=== PATIENT | male | born 1995 | race Caucasian/White ===

== ENCOUNTER 2017-02-26 19:14 | Emergency (ER) | payer BC ==
--- NOTE | 2017-02-26 19:46 | EDPHY ---
H & P Stated Complaint: abdominal pain and bloody emesis Time Seen by Provider: 02/26/17 19:46 Source: Patient - Personal History Current Tetanus/Diphtheria Vaccine: Yes Current Tetanus Diphtheria and Acellular Pertussis (TDAP): Yes - Medical/Surgical History Hx Asthma: No Hx Chronic Respiratory Disease: No Hx Diabetes: No Hx Cardiac Disease: No Hx Renal Disease: No Hx Cirrhosis: No Hx Alcoholism: No Hx HIV/AIDS: No Hx Splenectomy or Spleen Trauma: No Other PMH: PMH- ADHD - Social History Smoking Status: Current some day smoker Constitutional: Initial Vital Signs Temperature (C) 37.1 C 02/26/17 19:21 Heart Rate 84 02/26/17 19:21 Respiratory Rate 18 02/26/17 19:21 Blood Pressure 152/72 H 02/26/17 19:21 O2 Sat (%) 98 02/26/17 19:21 O2 Delivery Mode Room Air Allergies/Adverse Reactions: No Known Allergies Allergy (Unverified 03/12/16 12:53) Home Medications: Medication Instructions Recorded Adderall 10 MG (*) 03/12/16 Pantoprazole Sodium [Protonix] 40 mg PO DAILY #30 tablet. 02/26/17 Medical Decision Making - Diagnostics Imaging Results: Study: CT of the abdomen Indication: hematemesis Results: CT scan of the body parts was obtained. The results of the study are normal. The study was read by the radiologist, Dr. Norman. I viewed the images myself on the PACS system. Imaging: Discussed imaging studies w/ jig box operator Radiologist, I viewed and interpreted images myself ED Course/Re-evaluation: CHIEF COMPLAINT: Vomiting blood HISTORY OF PRESENT ILLNESS: The patient is a 22 y/o male complaining of vomiting dark blood on Sunday night and last night after drinking excessively Sunday. Three weeks ago he drank excessively and then vomited bright red blood. This happened again two weeks ago. This Sunday he drank excessively and than night he vomited dark red blood. He vomited dark red blood again Sunday night. He only drinks on the weekend and reports drinking more than normal the past few weekends. He has had three bowel movements today that were darker than normal but not black. He has associated intermittent abdominal pain and nausea. He denies any black or tarry stool, blood in stool, or other associated symptoms. He denies taking any NSAIDs , aspirin, or other blood thinners. He vomited blood over a year ago after heavy drinking. REVIEW OF SYSTEMS: A 10 point review of systems was performed and is negative with the exception of the elements mentioned in the history of present illness. PHYSICAL EXAM: HR, BP, O2 Sat, RR. Temp noted General Appearance: Alert, well hydrated, appropriate, and non-toxic appearing. Head: Atraumatic without scalp tenderness or obvious injury Eyes: Pupils equal, round, reactive to light and accommodation, EOMI, no trauma , no injection. Ears: Clear bilaterally, no perforation, normal landmarks Nose: Atraumatic, no rhinorrhea, clear. Throat: There is no erythema or exudates, no lesions, normal tonsils, mucus membranes moist. Neck: Supple, nontender, no lymphadenopathy. Respiratory: No retractions, no distress, no wheezes, and no accessory muscle use. Lungs are clear to auscultation bilaterally. Cardiovascular: Regular rate and rhythm, no murmurs, rubs, or gallops. Good capillary refill all extremities. Gastrointestinal: Pain that moves, abdomen is soft, non-distended, no masses, no rebound, no guarding, no peritoneal signs. Musculoskeletal: Normal active ROM of all extremities, atraumatic. Neurological: Alert, appropriate, and interactive. The patient has normal DTRs and non-focal cranial nerves, motor, sensory, and cerebellar exam. Skin: No rashes, good turgor, no nodules on palpation. Past medical history: Denies Past surgical history: Denies Family history: Non-contributory Social history: Student at , lives in [place], from originally, studies economics DIAGNOSTICS/PROCEDURES/CRITICAL CARE TIME: DIFFERENTIAL DIAGNOSIS: The differential diagnosis for this patient's symptoms include but is not limited to an ulcer, gastritis, and Samara-Cabello tear. MEDICAL DECISION MAKING: The patient is a 22 y/o male complaining of vomiting with blood in it after drinking heavily. For the past three weeks after he drinks heavily on the weekends he has vomited either bright or dark blood. He has associated nausea and abdominal pain. He denies any bloody, black, or tarry stools. On exam his abdominal pain moved from epigastric, periumbilical, and right upper quadrant pain under the ribs to lower left quadrant pain. I feel he likely has gastritis causes by heavy drinking but I want to investigate other possibilities. 2200: I reassessed the patient and discussed the results of his workup, which was largely negative. I feel he is safe to return home. Return precaution and follow up instructions given. The patient agrees with this course of action. - Data Points Laboratory Results: Laboratory Results 02/26/17 21:13 02/26/17 21:13 02/26/17 02/26/17 02/26/17 21:13 21:13 21:08 WBC 8.51 10^3/uL 10^3/uL (3.80-9.50) RBC 5.37 10^6/uL 10^6/uL (4.40-6.38) Hgb 17.1 g/dL g/dL (13.7-17.5) POC Hgb 17.7 gm/dL H gm/dL (13.7-17.5) Hct 48.2 % % (40.0-51.0) POC Hct 52 % H % (40-51) MCV 89.8 fL fL (81.5-99.8) MCH 31.8 pg pg (27.9-34.1) MCHC 35.5 g/dL g/dL (32.4-36.7) RDW 12.2 % % (11.5-15.2) Plt Count 324 10^3/uL 10^3/uL (150-400) MPV 8.5 fL L fL (8.7-11.7) Neut % (Auto) 72.8 % % (39.3-74.2) Lymph % (Auto) 17.0 % % (15.0-45.0) [place] % (Auto) 9.6 % % (4.5-13.0) Eos % (Auto) 0.2 % L % (0.6-7.6) Baso % (Auto) 0.2 % L % (0.3-1.7) Nucleat RBC Rel Count 0.0 % % (0.0-0.2) Absolute Neuts (auto) 6.18 10^3/uL 10^3/uL (1.70-6.50) Absolute Lymphs (auto) 1.45 10^3/uL 10^3/uL (1.00-3.00) Absolute Monos (auto) 0.82 10^3/uL H 10^3/uL (0.30-0.80) Absolute Eos (auto) 0.02 10^3/uL L 10^3/uL (0.03-0.40) Absolute Basos (auto) 0.02 10^3/uL 10^3/uL (0.02-0.10) Absolute Nucleated RBC 0.00 10^3/uL 10^3/uL (0-0.01) Immature Gran % 0.2 % % (0.0-1.1) Immature Gran # 0.02 10^3/uL 10^3/uL (0.00-0.10) POC Sodium 141 mEq/L mEq/L (134-144) Sodium 137 mEq/L mEq/L (134-144) POC Potassium 3.6 mEq/L mEq/L (3.3-5.0) Potassium 4.0 mEq/L mEq/L (3.5-5.2) POC Chloride 104 mEq/L mEq/L (97-110) Chloride 100 mEq/L mEq/L (97-110) Carbon Dioxide 20 mEq/l L mEq/l (22-31) Anion Gap 17 mEq/L H mEq/L (8-16) POC BUN 9 mg/dL mg/dL (7-23) BUN 10 mg/dL mg/dL (7-23) Creatinine 0.8 mg/dL mg/dL (0.7-1.3) POC Creatinine 0.7 mg/dL mg/dL (0.7-1.3) Estimated GFR > 60 Glucose 85 mg/dL mg/dL (70-100) POC Glucose 88 mg/dL mg/dL (70-100) Calcium 11.0 mg/dL H mg/dL (8.5-10.4) Phosphorus 3.0 mg/dL mg/dL (2.5-4.5) Total Bilirubin 1.5 mg/dL H mg/dL (0.1-1.4) Conjugated Bilirubin 0.4 mg/dL mg/dL (0.0-0.5) Unconjugated Bilirubin 1.1 mg/dL mg/dL (0.0-1.1) AST 52 IU/L IU/L (17-59) ALT 48 IU/L IU/L (21-72) Alkaline Phosphatase 75 IU/L IU/L (38-126) Total Protein 9.0 g/dL H g/dL (6.3-8.2) Albumin 5.3 g/dL H g/dL (3.5-5.0) Lipase 127 IU/L IU/L (23-300) Medications Given: Discontinued Medications Famotidine/Sodium Chloride (Pepcid 20 Mg (Premix)) 50 mls @ 200 mls/hr IV EDNOW ONE Stop: 02/26/17 21:14 Last Admin: 02/26/17 21:18 Dose: 50 mls Ondansetron HCl (Zofran) 4 mg IVP EDNOW ONE Stop: 02/26/17 21:01 Last Admin: 02/26/17 21:19 Dose: 4 mg Point of Care Test Results: 02/26/17 21:08 POC Sodium 141 POC Potassium 3.6 POC Chloride 104 POC BUN 9 POC Creatinine 0.7 POC Glucose 88 Departure - Departure Disposition: Home, Routine, Self-Care Clinical Impression: Gastritis with bleeding due to alcohol Qualifiers: Chronicity: acute Qualified Code(s): K29.21 - Alcoholic gastritis with bleeding Condition: Good Instructions: Gastritis (ED), Diet for Stomach Ulcers and Gastritis (ED) Additional Instructions: 1. Limit alcohol intake. 2. Take medication prescribed for 30 days. 3. Follow-up with Dr. Olea, gastroenterology, at [facility] for unimproved symptoms. 4. Return to the ED if you vomit blood or experience other worsening of condition. Referrals: HEATHER,UNKNOWN [Other] - As per Instructions Hugo Olea MD [Medical Doctor] - As per Instructions Prescriptions: Pantoprazole Sodium [Protonix] 40 mg PO DAILY #30 tablet. Report Scribed for: Shantanu Cates Report Scribed by: Janice Phan Date of Report: 02/26/17 Time of Report: 21:30
[2017-02-26] MEDS ORDERED: FAMOTIDINE 20 MG/NACL 50 ML IV ONE (21:00)
[2017-02-26] MEDS ORDERED: ONDANSETRON 4 MG/2 ML VIAL IVP ONE (21:00)
[2017-02-26 21:21] LABS: % IMMATURE GRANULYOCYTES 0.2 % (0.0-1.1); ABSOLUTE IMMATURE GRANULOCYTES 0.02 10^3/uL (0.00-0.10); ADD DIFF? NO; ADD MORPH? NO; ADD SCAN? NO; ATYPICAL LYMPHOCYTE FLAG 0 (0-99); FRAGMENT RBC FLAG 0 (0-99); HEMATOCRIT 48.2 % (40.0-51.0); HEMOGLOBIN 17.1 g/dL (13.7-17.5); LEFT SHIFT FLG 0 (0-99); LIPEMIA HEMOLYSIS FLAG 90 (0-99); MEAN CELL HEMOGLOBIN 31.8 pg (27.9-34.1); MEAN CELL HEMOGLOBIN CONCENTR. 35.5 g/dL (32.4-36.7); MEAN CELL VOLUME 89.8 fL (81.5-99.8); MEAN PLATELET VOLUME 8.5 fL (8.7-11.7); PLATELET CLUMPS FLAG 10 (0-99); PLATELET COUNT 324 10^3/uL (150-400); RED BLOOD CELL COUNT 5.37 10^6/uL (4.40-6.38); RED CELL DISTRIBUTION WIDTH 12.2 % (11.5-15.2)
[2017-02-26 21:34] LABS: ALANINE AMINOTRANSFERASE 48 IU/L (21-72); ALBUMIN 5.3 g/dL (3.5-5.0); ALKALINE PHOSPHATASE 75 IU/L (38-126); ANION GAP 17 mEq/L (8-16); ASPARTATE AMINOTRANSFERASE 52 IU/L (17-59); BILIRUBIN,TOTAL 1.5 mg/dL (0.1-1.4); BILIRUBIN-CONJUGATED 0.4 mg/dL (0.0-0.5); BILIRUBIN-UNCONJUGATED 1.1 mg/dL (0.0-1.1); CARBON DIOXIDE 20 mEq/l (22-31); CHLORIDE 100 mEq/L (97-110); CREATININE 0.8 mg/dL (0.7-1.3); GLOMERULAR FILTRATION RATE > 60; GLUCOSE 85 mg/dL (70-100); SODIUM 137 mEq/L (134-144)
[2017-02-26] MEDS ORDERED: IOPAMIDOL (ISOVUE-300) 100 ML BTL ONE (21:37)
[2017-02-26 22:25] VITALS: BP 142/66; PULSE 72; RESP 16; TEMP 98.2; O2SAT 97
== END 2017-02-26 22:25 | disposition home or self-care (01) ==
DX: K29.21 Alcoholic gastritis with bleeding (principal); F17.200 Nicotine dependence, unspecified, uncomplicated
CPT/HCPCS: 82947-QW; 96365; J2405; Q9967

== ENCOUNTER 2018-03-24 10:25 | Emergency (ER) | payer BC ==
[2018-03-24] MEDS ORDERED: ONDANSETRON 4 MG/2 ML VIAL IVP ONE (11:08)
[2018-03-24] MEDS ORDERED: NS 1,000 ML IV ONE (11:08)
--- NOTE | 2018-03-24 11:08 | EDPHY ---
General Time Seen by Provider: 03/24/18 10:56 Narrative: CHIEF COMPLAINT: Nausea, insomnia, dizzy, head injury, "slap injuries" HISTORY OF PRESENT ILLNESS: Patient presents by private vehicle with complaints of feeling nauseated, difficulty sleeping, lightheaded with a closed head injury and playing "a slapping game" on night. He reports that he was drinking heavily on and plain "a stupid game where we slap each other in the abdomen." He states that he at some point slipped and fell, striking his head on an unknown object. He does not think he lost consciousness. He had a right-sided headache that has significantly improved. He has persistent nausea, insomnia, dizziness and lightheadedness. He has mild abdominal pain. He has no urinary complaints or hematuria. He has no fever. No neck pain or stiffness. He does have some difficulty with his thought process. He had 1st attributed this to alcohol use but states that it has not improved enough for him. He presented to Urgent Care, but they sent him to emergency depart for higher level care. No modifying factors for these. He has no other associated complaints or modifying factors. REVIEW OF SYSTEMS: 10 systems were reviewed and negative with the exception of the elements mentioned in the history of present illness. PCP: None locally. SPECIALISTS: None PAST MEDICAL HISTORY: Attention deficit hyperactivity disorder PAST SURGICAL HISTORY: no surgical history SOCIAL HISTORY: Nonsmoker. Occasional alcohol and marijuana use. [employer] student. Originally from [place] FAMILY HISTORY: Noncontributory EXAMINATION: Vitals: Triage VS reviewed General Appearance: Alert, no distress. Well appearing. Normal conversation. Head: normocephalic. Superficial frontal hematoma. No occipital hematoma. Superficial 2 cm laceration to the right frontal scalp in the hairline. No distraction of the wound borders. No exposure of the galea. No foreign body or bleeding. Eyes: Pupils equal and round, no conjunctival pallor or injection ENT, Mouth: Mucous membranes moist Neck: Normal inspection, supple, non-tender. No crepitus or deformity. Painless range of motion. Respiratory: Lungs are clear to auscultation Cardiovascular: Regular rate and rhythm Gastrointestinal: Abdomen is soft and nondistended. Minimal tenderness over areas of superficial ecchymosis to the quadrants. No CVA tenderness. No guarding. Bowel sounds are present all 4 quadrants. No rigidity. No peritonitis Back: non-tender, no bony abnormalities Neurological: GCS 15. A&O, nonfocal, normal gait. Strength is symmetric in all 4 limbs. Light Sensory is symmetric upper lower extremities. Normal finger -to-nose. No pronator drift. Skin: Warm and dry, no rash. Superficial abrasion as above. Extremities: Nontender, no pedal edema Psychiatric: Mood and affect normal DIFFERENTIAL DIAGNOSES: Including but not limited to intracranial hemorrhage, closed head injury, concussion, cerebral edema, splenic injury, renal injury, hepatic injury, hollow organ injury, rectus sheath hematoma MDM: 11:00 a.m. Reported repeat blunt trauma by slapping to the abdomen on night with some bruising but a benign abdominal examination. He does have symptoms consistent with a post concussive state. He has a normal neuro examination with no focal findings. He has no evidence of basilar skull fracture. I do not feel he meets hard criteria by [place] CT head rules or NOC for CT scan at this time. I do feel it is reasonable to obtain laboratory studies and provide IV fluid resuscitation for dehydration. He is in no acute distress. Vital signs are within normal limits. 12:30 p.m. Patient re-evaluated. Laboratory studies unremarkable. I have re-evaluated the patient. He continues complaint nausea and dizziness. He would like discussed with parents. 1:30 p.m. Patient has discussed further was mother. They are both requesting CT scan of the head their concern for symptoms. I have ordered this at the request. 2:00 p.m. Notified by radiologist Dr. Alfonso. CT scan unremarkable for any acute findings. 2:20 p.m. Patient re-evaluated. We discussed the negative CT. We discussed closed head injury and post-concussion symptoms that he may expect. We discussed symptomatic medications, rest, hydration and follow up with Dr. Palacio for definitive care. He is comfortable with this plan and discharged home in stable condition. SUPERVISION: Patient was independently examined, but I discussed the case with my primary supervising physician Dr. Ansari. CONSULTATION: None - History Smoking Status: Former smoker - Objective Vital Signs: Initial Vital Signs Temperature (C) 97.7 F 03/24/18 10:29 Heart Rate 90 03/24/18 10:29 Respiratory Rate 16 03/24/18 10:29 Blood Pressure 131/77 H 03/24/18 10:29 O2 Sat (%) 97 03/24/18 10:29 O2 Delivery Mode Room Air Allergies/Adverse Reactions: No Known Allergies Allergy (Verified 03/24/18 10:28) Home Medications: Medication Instructions Recorded Adderall 10 MG (*) 03/12/16 Acet/Caffeine/Buta Fioricet 1 each PO Q6 PRN #12 tab 03/24/18 [Fioricet (*)] Promethazine HCl [Phenergan 25mg 25 mg PO Q8 PRN #12 tab 03/24/18 (*)] Laboratory Results: Laboratory Results 03/24/18 11:15 03/24/18 11:15 Medications Given: Discontinued Medications Sodium Chloride (Ns) 1,000 mls @ 0 mls/hr IV EDNOW ONE; Wide Open PRN Reason: Protocol Stop: 03/24/18 11:09 Last Admin: 03/24/18 11:19 Dose: 1,000 mls Ondansetron HCl (Zofran) 4 mg IVP EDNOW ONE Stop: 03/24/18 11:09 Last Admin: 03/24/18 11:21 Dose: 4 mg Departure - Departure Disposition: Home, Routine, Self-Care Clinical Impression: Nausea, Post concussion syndrome Closed head injury Qualifiers: Encounter type: initial encounter Qualified Code(s): S09.90XA - Unspecified injury of head, initial encounter Condition: Good Instructions: Promethazine (By mouth), Butalbital/Acetaminophen/Caffeine (By mouth), Concussion (ED), Head Injury (ED) Additional Instructions: 1. Medications as prescribed as needed for headache and nausea 2. Increase fluid intake the next 48 hr 3. Avoid alcohol intake for the next 48-[address] Palacio for outpatient follow-up your head injury 5. ED precautions for worsening symptoms as discussed and demonstrated Referrals: UDAY ROMERO [Other] - As per Instructions Melody Palacio MD [Medical Doctor] - As per Instructions Stand Alone Forms: School Excuse Prescriptions: Acet/Caffeine/Buta Fioricet [Fioricet (*)] 1 each PO Q6 PRN #12 tab PRN Reason: Headache Promethazine HCl [Phenergan 25mg (*)] 25 mg PO Q8 PRN #12 tab PRN Reason: Nausea/Vomiting, Use 1st
[2018-03-24 12:04] LABS: PLATELET COUNT 299 10^3/uL (150-400)
[2018-03-24 14:49] VITALS: BP 121/75
== END 2018-03-24 14:54 | disposition home or self-care (01) ==
DX: S06.0X0A Concussion without loss of consciousness, initial encounter (principal); E86.9 Volume depletion, unspecified; W01.198A Fall on same level from slipping, tripping and stumbling with subsequent striking against other object, initial encounter
CPT/HCPCS: 96374; J2405